=== PATIENT | male | born 1970 | race Caucasian/White ===

== ENCOUNTER 2018-01-19 18:27 | Emergency (ER) | payer SELFPAY ==
[~2018-01-19] VITALS: Ht 170.2 cm; Wt 63.0 kg
[~2018-01-19 18:27] MED LIST: ACET-2178; OMEP20CA4 PO; TRAM50TA3 PO
[2018-01-19] MEDS ORDERED: SODIUM CHLORIDE 0.9% 1,000 ML IV ONE (22:40)
[2018-01-19] MEDS ORDERED: ONDANSETRON HCL 4MG/2ML VIAL IV STA (22:40)
[2018-01-19] MEDS ORDERED: MORPHINE SULFATE 4 MG/ML CPJ (NOT FOR IM USE) IV STA (22:40)
[2018-01-19 23:11] LABS: BASOPHILS % 1.2 % (0.0-2.0); EOSINOPHILS % 0.3 % (0.0-5.0); HEMATOCRIT. 29.6 % (42.0-52.0); HEMOGLOBIN. 10.7 g/dL (14.0-18.0); LYMPHOCYTES % 36.4 % (20.0-50.0); MEAN CORPUSCULAR HEMOGLOBIN 31.9 pg (28.0-32.0); MEAN CORPUSCULAR VOLUME 88.2 fL (80.0-94.0); MEAN PLATELET VOLUME 8.9 fl (7.4-10.4); MONOCYTES % 8.5 % (2.0-8.0); NEUTROPHILS % 53.6 % (40.0-76.0); PLATELET 155 x1000/uL (130-400); RED BLOOD CELL COUNT 3.36 mill/uL (4.7-6.1); RED CELL DISTRIBUTION WIDTH 13.3 % (11.6-14.6)
[2018-01-19 23:17] LABS: INR 1.1
[2018-01-19 23:19] LABS: CHLORIDE 99 mEq/L (98-107)
[2018-01-19 23:24] LABS: ETHANOL BLOOD < 10 mg/dL
[2018-01-20] MEDS ORDERED: KETOROLAC 30MG/ML VIAL IV ONE (01:45)
[2018-01-20 02:04] LABS: CLARITY URINE CLEAR (CLEAR); COLOR URINE YELLOW (YELLOW); KETONES URINE NEGATIVE (NEGATIVE); LEUKOCYTE ESTERASE URINE NEGATIVE (NEGATIVE); NITRITE URINE NEGATIVE (NEGATIVE); OCCULT BLOOD URINE NEGATIVE (NEGATIVE); PROTEIN URINE NEGATIVE (NEGATIVE); SPECIFIC GRAVITY URINE 1.019 (1.005-1.030); UROBILINOGEN URINE 0.2 E.U./dL (0.2-1.0)
[2018-01-20 02:51] LABS: *AMPHETAMINES SCREEN URINE NEGATIVE (NEGATIVE); *BARBITURATES SCREEN URINE NEGATIVE (NEGATIVE); *BENZODIAZEPINES SCREEN URINE NEGATIVE (NEGATIVE); *COCAINE SCREEN URINE NEGATIVE (NEGATIVE); CANNABINOID URINE SCREEN NEGATIVE (NEGATIVE); METHADONE URINE SCREEN NEGATIVE (NEGATIVE); OPIATES URINE SCREEN PRESUMTIVE POSITIVE (NEGATIVE); PHENCYCLIDINE URINE SCREEN NEGATIVE (NEGATIVE)
[2018-01-20 03:00] VITALS: BP 157/96
== END 2018-01-20 03:00 | disposition home or self-care (01) ==
LOC: ER 18:27
DX: R10.13 Epigastric pain (principal); R19.7 Diarrhea, unspecified; E11.9 Type 2 diabetes mellitus without complications; F17.200 Nicotine dependence, unspecified, uncomplicated; K85.90 Acute pancreatitis without necrosis or infection, unspecified; F10.10 Alcohol abuse, uncomplicated
CPT/HCPCS: 36415; 80053; 80305; 81003; 82962; 83690; 85025; 85610; 96361; 96374; 96375; 99284; G0482; J1885; J2270; J2405; J7030; Z7610